=== PATIENT | male | born 2000 | race Caucasian/White ===

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

== ENCOUNTER → 2020-03-14 07:44 | Outpatient (BNVA) | payer MEDICAID, SELFPAY | PROVIDERS: Family Provider Internal Medicine; PCP Nurse Practitioner Family; Visit Provider Psychiatry & Neurology Psychiatry | DX: F70 Mild intellectual disabilities (principal) | CPT/HCPCS: 90832 ==

== ENCOUNTER → 2020-04-25 08:37 | Outpatient (BNVA) | payer MEDICAID, SELFPAY | PROVIDERS: Family Provider Internal Medicine; PCP Nurse Practitioner Family; Visit Provider Psychiatry & Neurology Psychiatry | DX: F70 Mild intellectual disabilities (principal) | CPT/HCPCS: 90832 ==

== ENCOUNTER → 2020-05-08 13:51 | Outpatient (BNVA) | payer MEDICAID, SELFPAY | PROVIDERS: Family Provider Internal Medicine; PCP Nurse Practitioner Family; Visit Provider Specialist | DX: G40.309 Generalized idiopathic epilepsy and epileptic syndromes, not intractable, without status epilepticus (principal) | CPT/HCPCS: 99213 ==

== ENCOUNTER → 2020-12-04 12:44 | Outpatient (BNVA) | payer MEDICARE, MEDICAID, SELFPAY | PROVIDERS: Family Provider Internal Medicine; PCP Nurse Practitioner Family; Visit Provider Specialist | DX: G40.309 Generalized idiopathic epilepsy and epileptic syndromes, not intractable, without status epilepticus (principal); Z71.89 Other specified counseling | CPT/HCPCS: 99213 ==

== ENCOUNTER 2021-03-23 22:03 | Emergency (ER) | payer MEDICARE, MEDICAID, SELFPAY ==
[2021-03-23 22:13] VITALS: BP 122/92; PULSE 96; RESP 15; TEMP 36.8; O2SAT 96; BMI 27.8
[2021-03-23 22:25] VITALS: BP 122/92; PULSE 75; RESP 16; O2SAT 98
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
[2021-03-23 23:01] VITALS: BP 122/92; PULSE 75; RESP 16; O2SAT 98
== END 2021-03-23 23:02 | disposition home or self-care (01) ==
PROVIDERS: Emergency Provider Physician Assistant; Family Provider Internal Medicine; PCP Nurse Practitioner Family
DX: S00.01XA Abrasion of scalp, initial encounter (principal); Y04.2XXA Assault by strike against or bumped into by another person, initial encounter
CPT/HCPCS: 99281

== ENCOUNTER 2021-06-08 12:07 | Emergency (ER) | payer MEDICARE, MEDICAID, SELFPAY ==
[2021-06-08 12:20] VITALS: BP 123/85; PULSE 105; RESP 18; TEMP 36.7; O2SAT 96; BMI 28.5
--- NOTE | 2021-06-08 12:33 | XRR_ITS ---
PROCEDURE INFORMATION: Exam: XR Chest Exam date and time: 06/08/2021 12:33 PM Age: 20 years old Clinical indication: Pain; Angina pectoris; Additional info: Chest pain TECHNIQUE: Imaging protocol: XR of the chest. Views: 2 views. COMPARISON: No relevant prior studies available. FINDINGS: Lungs: Unremarkable. No consolidation. Pleural spaces: Unremarkable. No pleural effusion. No pneumothorax. Heart/Mediastinum: Unremarkable. No cardiomegaly. Bones/joints: Unremarkable. XR/XR chest 2V* [id number] IMPRESSION: No acute findings.
--- NOTE | 2021-06-08 12:36 | ED_ITS ---
HPI - General Adult General: Chief complaint: Chest Pain Stated complaint: cp Time Seen by Provider: 06/08/21 12:30 History of Present Illness: HPI narrative: CC: Chest Pain HPI: This is a [20] yo patient w/ hx of mild intellectual disability and and controlled epilpespy presenting to the ED complaining of acute sudden onset intermittent sharp chest pain x 1 days WITHOUT radiation to the back or shoulders. Patient tells me me that this pain started yesterday afternoon he took some Tums with some improvement in symptoms however the pain came back. Pain is sharp and lasts for a few hrs at a time. No associated with shortness of breath, chest pain or dyspnea on exertion. Pain is not tearing in nature and does not radiate to the back. Pain not associated with vomiting or PO intake. Denies any recent sympathomimetic drug use. Denies palpitations, dysphagia, diaphoresis, radiation of pain to bilateral arms, jaw. Denies F/N/V/D. Patient denies any recent immobility, surgery, unilateral leg swelling, or prior PE. Patient denies any orthopnea. No family hx of aortic aneurysms. Patient also reports cough and nasal congestion x 4 days. He has not had a covd test. Onset: yesterday afternoon Duration: ongoing for the 1 day Location: home Severity: mild/moderate Associated symptoms: Reports chest pain; Deny dyspnea, nausea, rash, palpitations or vomiting Review of Systems Const: Denies: fever(s) or chills Eyes: Denies: change in vision ENMT: Reports: other (nasal congestion); Denies: mouth pain Card: Reports: chest pain; Denies: palpitations Resp: Reports: non-productive cough; Denies: dyspnea GI: Denies: abdominal pain, nausea, vomiting or diarrhea : Denies: dysuria Musc: Denies: extremity pain Skin/Breast: Denies: rash or new lesions Neuro: Denies: weakness in extremities Psych: Reports: other (Normal mood) Dawson/Lymph: Denies: easy bruising PFS ED PFSH: Medical History Controlled epilepsy Mild intellectual disabilities Family History Denies family history of CAD (coronary artery disease) Social History Smoking and tobacco status: never smoked Alcohol intake: never Substance/Drug Use: never Physical Exam Const: COMMON NORMALS: alert HENMT: COMMON NORMALS: atraumatic HEAD & SCALP: atraumatic MOUTH: moist mucous membranes not abnormal Eye: COMMON NORMALS: EOMs intact bilaterally and conjunctivae normal CONJUNCTIVA: Yes conjunctivae normal Neck/C-Spine: COMMON NORMALS: full ROM and supple Resp: COMMON NORMALS: normal respiratory effort and clear to auscultation bilaterally AUSCULTATION: clear to auscultation bilaterally Cardio: COMMON NORMALS: regular rate RATE: regular rate GI: COMMON NORMALS: Soft to palpation and non-tender PALPATION: Yes Soft to palpation Extremity: COMMON NORMALS: full ROM Neuro: SENSORIUM/ORIENTATION: Yes alert MOTOR EXAM: No Abnormal motor strength present and Other motor observations present (no focal motor deficits) Psych: COMMON NORMALS: speech normal SPEECH: Yes normal speech MOOD & AFFECT: Yes euthymic mood Course Vital Signs: Vital signs: Vital Signs Temperature 98.0 F 06/08/21 12:20 Pulse Rate 105 H 06/08/21 12:20 Respiratory Rate 18 06/08/21 12:20 Blood Pressure 123/85 06/08/21 12:20 Pulse Oximetry 96 06/08/21 12:20 MDM - General Adult MDM Narrative: Medical decision making narrative: [20]yo patient w/ hx of epilepsy and intellectual disability presenting to the ED with evaluation of chest pain since yesterday afternoon. HDS, pulse 2+ radially bilaterally, no signs of fluid overload, AAOx3, neuro exam intact. Given History and Exam today I have no suspicion for ACS, Pneumothorax, Pneumonia, Pulmonary Embolus, Tamponade, Aortic Dissection or other emergent problems as a cause for this presentation. Workup: ECG, CXR Interventions: Tylenol 500mg Findings: ECG: No overt evidence of STEMI, hyperacute T waves, localizable STD or T wave inversions. No evidence of Brugada?s sign, delta wave, epsilon wave, significantly prolonged QTc, or malignant arrhythmia. No Q waves. +repolarization in V2-V4 secondary to large QRS amplitude Other Labs unremarkable for emergent problems. CXR: Without PTX, PNA, or widened mediastinum Last Stress Test: never Last Heart Catheterization: never HEART Score: 0 PERC: Negative [1:10pm] On reassessment, the patient is HDS, no complaints of persistent chest pain in the ED after evaluation. ECG is non-ischemic. XR chest negative for any focal fdinigns. Doubt ACS/PE or other emergent causes of chest pain. Doubt ACS/PE or other emergent causes of chest pain. No suspicion for aortic dissection given no widened mediastinum, 2+ upper extremity pulses, or tearing pain. No suspicion for PE given no pleuritic chest pain, recent immobilization or surgery hemoptysis, or other VTE risk factors. EKG is non-ischemic. XR normal. COVID PCR pending send out. Patient aware of a call from us if the test is positive. Rx: Tylenol 500mg Q6Hrs PRN pain I have given patient follow up with our machine adjuster leader case trim to be seen by our primary care provider for further evaluation of chest pain. Patient aware of a call from our machine adjuster leader case trim to schedule for appointment(s) and verbalizes understanding of the importance of following up. Disposition: Discharge. Strict return precautions discussed with the patient with full understanding. Advised patient to follow up promptly with a primary care provider in 24-48 hrs if the patient has persistent symptoms. Given return instructions for any crushing/tearing chest pain, focal weakness, syncope or any new or concerning issues. Discharge Plan Discharge Patient Disposition: Home Clinical Impression: Chest pain Condition: Stable Prescriptions: New acetaminophen 500 mg tablet 500 mg PO Q6H PRN (Reason: pain) 5 Days Qty: 20 RF: 0 No Action docusate sodium [Colace] 100 mg capsule 100 mg PO ONCE RF: 0 fluticasone prp-sod.chl,bicarb 50 mcg- 0.9 % kit,spray suspension and spray INTRANASAL DAILY RF: 0 levomefolate calcium [L-Methylfolate] 7.5 mg tablet 7.5 mg PO ONCE RF: 0 Dulera 100-5 mcg/actuation HFA aerosol inhaler 2 puff INHALATION BID RF: 0 montelukast [Singulair] 10 mg tablet 10 mg PO ONCE RF: 0 cholecalciferol (vitamin D3) 1,000 unit capsule 1,000 unit PO ONCE RF: 0 sodium chloride [Deep Sea Nasal] 0.65 % aerosol,spray 2 spray INTRANASAL QID PRNRF: 0 cetirizine [Wal-Zyr (cetirizine)] 10 mg tablet 10 mg PO ONCE RF: 0 midazolam 5 mg/spray (0.1 mL) spray,non-aerosol 1 spray INTRANASAL ONCE PRN (Reason: seizures) Qty: 6 RF: 5 divalproex 500 mg tablet,delayed release (DR/EC) See Rx Instructions .ROUTE .COMPLEX Qty: 90 RF: 5 Discharge Orders: Discharge ED (Routine); Ordered 06/08/21 Ordered By: Rianna Meyers Referrals: Marisol Anderson FNP [Primary Care Provider] - Carson Greene DO [Physician] - Discharge Diet: Advance as tolerated Discharge Activity: Increase activity as tolerated Patient Instructions: Chest Pain (ED) Activity Restrictions/Additional Instructions: Come back to the emergency room if your chest pain worsens, have any fever or chills, worsening shortness of breath, worsening exertional lightheadedness, or any new or concerning complaints. Our machine adjuster leader case trim will have you follow-up with a primary care provider in the next few days for evaluation of chest pain. You would be expected to have a ph one call with our machine adjuster leader case trim who will put you on the schedule. Coding Level of Care Code ED Retail Store Clerk for Olivierg Fwd Exam Comprehensive
[2021-06-08] MEDS: acetaminophen 500 mg Tablet PO (12:45)
[2021-06-08 13:58] VITALS: BP 116/80; PULSE 96; RESP 18; TEMP 37.1; O2SAT 96
--- NOTE | 2021-06-08 14:18 | PC.NURSE ---
REVIEWED DISCHARGE INSTRUCTIONS WITH PATIENT AND STAFF MEMBER, BOTH VERBALIZE UNDERSTANDING OF ALL INSTRUCTIONS AND FOLLOW UP, PATIENT AMBULATED FROM THE ED
[2021-06-08 15:22] LABS: Adenovirus Not Detected (NOT DETECT); Chlamydia Pneumoniae Not Detected (NOT DETECT); Coronavirus 229E,HKU1,NL63,OC4 Not Detected (NOT DETECT); Human Metapneumovirus Not Detected (NOT DETECT); Human Rhinovirus/Enterovirus Not Detected (NOT DETECT); Influenza A Not Detected (NOT DETECT); Influenza A H1 Not Detected (NOT DETECT); Influenza A H1-2009 Not Detected (NOT DETECT); Influenza A H3 Not Detected (NOT DETECT); Influenza B Not Detected (NOT DETECT); Mycoplasma Pneumoniae Not Detected (NOT DETECT); Parainfluenza Virus Type 1 Not Detected (NOT DETECT); Parainfluenza Virus Type 2 Not Detected (NOT DETECT); Parainfluenza Virus Type 3 Not Detected (NOT DETECT); Parainfluenza Virus Type 4 Not Detected (NOT DETECT); Respiratory Syncytial Virus A Not Detected (NOT DETECT); Respiratory Syncytial Virus B Not Detected (NOT DETECT); SARS-COV-2 Not Detected (NOT DETECT)
--- NOTE | 2021-06-10 15:54 | DCPLANNER ---
training development manager had message to schedule a follow up appointment for patient with primary care for chest pain. training development manager called phone number [phone], unable to speak with patient or leave a voicemail. training development manager tried calling number several times, phone just had a busy signal.
== END 2021-06-08 14:23 | disposition home or self-care (01) ==
LOC: ER 12:47
PROVIDERS: Emergency Provider Emergency Medicine; PCP Nurse Practitioner Family
DX: R07.9 Chest pain, unspecified (principal); Z20.822 Contact with and (suspected) exposure to COVID-19
CPT/HCPCS: 71046; 87635; 99283

== ENCOUNTER → 2021-10-06 14:57 | Outpatient (BNVA) | payer MEDICARE, MEDICAID, SELFPAY | PROVIDERS: PCP Nurse Practitioner Family; Visit Provider Specialist | DX: G40.309 Generalized idiopathic epilepsy and epileptic syndromes, not intractable, without status epilepticus (principal) | CPT/HCPCS: 99213 ==

== ENCOUNTER → 2021-11-24 10:27 | Outpatient (BNVA) | payer MEDICARE, MEDICAID, SELFPAY | PROVIDERS: PCP Nurse Practitioner Family; Referring Provider Specialist; Visit Provider Specialist | DX: G40.309 Generalized idiopathic epilepsy and epileptic syndromes, not intractable, without status epilepticus (principal) | CPT/HCPCS: 95816 ==

== ENCOUNTER 2021-12-24 11:55 | Outpatient (CLI) | payer MEDICARE, MEDICAID, SELFPAY ==
[2021-12-24 15:10] LABS: Valproic Acid Level 100.4 ug/mL (50-100)
== END 2021-12-24 11:56 | disposition home or self-care (01) ==
LOC: LAB 11:57
PROVIDERS: PCP Nurse Practitioner Family; Visit Provider Specialist
DX: G40.309 Generalized idiopathic epilepsy and epileptic syndromes, not intractable, without status epilepticus (principal); Z79.899 Other long term (current) drug therapy
CPT/HCPCS: 36415; 80164

== ENCOUNTER → 2022-04-07 12:51 | Outpatient (BNVA) | payer MEDICARE, MEDICAID, SELFPAY | PROVIDERS: PCP Nurse Practitioner Family; Visit Provider Specialist | DX: G40.309 Generalized idiopathic epilepsy and epileptic syndromes, not intractable, without status epilepticus (principal) | CPT/HCPCS: 99214 ==

== ENCOUNTER → 2022-10-07 15:47 | Outpatient (BNVA) | payer MEDICARE, MEDICAID, SELFPAY | PROVIDERS: PCP Nurse Practitioner Family; Visit Provider Specialist | DX: G40.309 Generalized idiopathic epilepsy and epileptic syndromes, not intractable, without status epilepticus (principal); R63.5 Abnormal weight gain; Z68.30 Body mass index [BMI] 30.0-30.9, adult; T42.6X5S Adverse effect of other antiepileptic and sedative-hypnotic drugs, sequela | CPT/HCPCS: 99214 ==

== ENCOUNTER → 2023-04-14 15:07 | Outpatient (BNVA) | payer MEDICARE, MEDICAID, SELFPAY | PROVIDERS: PCP Nurse Practitioner Family; Visit Provider Specialist | DX: G40.309 Generalized idiopathic epilepsy and epileptic syndromes, not intractable, without status epilepticus (principal) | CPT/HCPCS: 99214 ==

== ENCOUNTER → 2024-04-05 09:27 | Outpatient (BNVA) | payer MEDICARE, MEDICAID, SELFPAY | PROVIDERS: PCP Nurse Practitioner Family; Visit Provider Specialist | DX: G40.309 Generalized idiopathic epilepsy and epileptic syndromes, not intractable, without status epilepticus (principal) | CPT/HCPCS: 99213 ==

== ENCOUNTER → 2025-03-26 09:12 | Outpatient (BNVA) | payer MEDICARE, MEDICAID, SELFPAY | PROVIDERS: PCP Nurse Practitioner Family; Visit Provider Specialist | DX: G40.309 Generalized idiopathic epilepsy and epileptic syndromes, not intractable, without status epilepticus (principal) | CPT/HCPCS: 99213 ==